=== PATIENT | male | born 1995 | race Caucasian/White ===

== ENCOUNTER 2019-02-21 14:21 | Emergency (ER) | payer BC, OTHER ==
--- NOTE | 2019-02-21 14:23 | UC ---
Hand/Wrist HPI - HPI Summary HPI Summary: 23 yo male presents with LEFT hand pain. He tells me that 2 days ago he was out of town with friends and admits to getting very drunk. He woke up yesterday morning with left hand pain that felt like he punched something, but does not recall this. His pain has continued into today and he is having trouble gripping /lifting things at work. He is left handed. Denies numbness or tingling. - History Of Current Complaint Stated Complaint: HAND INJURY Time Seen by Provider: 02/21/19 14:23 Hx Obtained From: Patient Onset/Duration: Sudden Onset Severity Initially: Moderate Severity Currently: Moderate Pain Intensity: 5 Pain Scale Used: 0-10 Numeric - Allergies/Home Medications Allergies/Adverse Reactions: Allergies Allergy/AdvReac Type Severity Reaction Status Date / Time bee venom protein (honey bee) Allergy Swelling Verified 02/21/19 14:34 Home Medications: Home Medications Ibuprofen 400 mg PO ONCE PRN 02/21/19 [History Confirmed 02/21/19] PMH/Surg Hx/FS Hx/Imm Hx - Additional Past Medical History Additional PMH: None - Surgical History Surgical History: None - Family History Known Family History: Positive: None - Social History Occupation: Employed Full-time Lives: With Family Alcohol Use: Occasionally Substance Use Type: None Smoking Status (MU): Never Smoked Tobacco Review of Systems All Other Systems Reviewed And Are Negative: Yes Constitutional: Positive: Negative Skin: Positive: Negative Respiratory: Positive: Negative Cardiovascular: Positive: Negative Neurovascular: Positive: Negative Musculoskeletal: Positive: Other: - Left hand pain Neurological: Positive: Negative Psychological: Positive: Negative Physical Exam - Summary Physical Exam Summary: GENERAL: NAD. WDWN. No pain distress. SKIN: No rashes, sores, lesions, or open wounds. CHEST: No accessory muscle use. Breathing comfortably and in no distress. CV: Pulses intact radial and ulnar. Cap refill <2seconds MSK: LEFT HAND: FROM. Mild TTP at 5th MCP with mild ecchymosis at 5th MC. Strength 5/5 including records associate strength. No edema or obvious bony deformities. No snuffbox tenderness. NEURO: Alert. Sensations intact hand and all fingers. PSYCH: Age appropriate behavior. Triage Information Reviewed: Yes Vital Signs: Vital Signs: Temp Pulse Resp BP Pulse Ox 98.4 F 88 18 144/84 100 02/21/19 14:30 02/21/19 14:30 02/21/19 14:30 02/21/19 14:30 02/21/19 14:30 Hand/Wrist Course/Dx - Course Course Of Treatment: XR: IMPRESSION: #. Negative exam. If there is high index of suspicion for an occult scaphoid fracture repeat exam with dedicated wrist technique including scaphoid view in 7 - 10 days would be suggested. Suspect contusion. Hand was EMILIA wrapped and advised to RICE and take ibuprofen as directed for discomfort. F/u if symptoms do not improve in 5 days. - Differential Dx/Diagnosis Provider Diagnosis: Contusion of left hand Discharge - Sign-Out/Discharge Documenting (check all that apply): Patient Departure All imaging exams completed and their final reports reviewed: Yes - Discharge Plan Condition: Stable Disposition: HOME Patient Education Materials: Contusion in Adults (ED) Referrals: Som Villeda MD [Primary Care Provider] - Additional Instructions: If you develop a fever, shortness of breath, chest pain, new or worsening symptoms - please call your PCP or go to the ED immediately. 1) Your X-Rays were normal today. 2) I suspect your pain is due to a contusion/bruise or sprain of your hand and should improve with appropriate rest over the next 3-5 days. 3) Rest, Ice, and elevate your your hand to decrease pain and swelling. - Billing Disposition and Condition Condition: STABLE Disposition: Home - Attestation Statements Provider Attestation: I was available for consult. This patient was seen by the PAULINE. The patient was not presented to, seen by, or examined by me. -[place]
[2019-02-21 14:34] VITALS: BP 144/84
== END 2019-02-21 15:07 | disposition home or self-care (01) ==
LOC: UCEAST 14:21
DX: S60.222A Contusion of left hand, initial encounter (principal); X58.XXXA Exposure to other specified factors, initial encounter; Y92.9 Unspecified place or not applicable
CPT/HCPCS: 99202; G0463